=== PATIENT | male | born 1965 | race Caucasian/White ===

== ENCOUNTER 2017-01-27 19:07 | Observation (INO) | payer OTHER ==
[~2017-01-27] VITALS: Ht 190.5 cm; Wt 114.9 kg
[~2017-01-27 19:07] MED LIST: BACTRIM,SEPT1 TABLET PO; BENADRYL25 MG PO; CLEOCIN300 MG PO; DELTASONE20 M1 PO; DICLOFENAC SODI75 MG PO; DOXYCYCLINE HY100 M1 PO; FLAGYL500 MG PO; GABAPENTIN600 MG PO; HYCODAN SYRUP480 ML PO; INDOCIN25 MG PO; LIPITOR40 MG PO; METHADONE10 MG PO; MOBIC15 MG PO; NEXIUM40 MG PO; NOHOMEMEDS; OXYCODONE HCL10 MG PO; PERCOCET 10/1 TABLET PO; PERCOCET 7.5-31 EACH PO; PERCOCET 7.51 TABLET PO; PREDNISONE20 MG PO; PRILOSEC OTC20 MG PO; PRILOSEC40 MG PO; SOLARCAINE ALO TP; TRAMADOL HCL50 MG PO; VALIUM5 MG PO; VITAMIN D5000 UNI1 PO; VITAMIN D50000 UNI4 PO; VOLTAREN50 MG PO; ZANTAC150 MG PO; ZITHROMAX250 MG PO
[2017-01-27 20:36] LABS: HEMATOCRIT 49.7 % (38.0-50.0); MCH 29.4 PG (29.0-34.0); MCHC 32.4 G/DL (30.0-36.0); MCV 90.7 FL (86-99); MEAN PLAT.VOLUME 10.6 uM^3 (9.0-12.4); PLATELET COUNT 175 K/uL (156-360); RBC DIS.WIDTH-CV 13.5 % (11.8-14.6); RBC DIS.WIDTH-SD 45.4 % (39-53); RED BLOOD COUNT 5.48 M/uL (4.00-5.50)
[2017-01-27 20:51] LABS: CHLORIDE 105 mEq/L (99-109); POTASSIUM 4.9 mEq/L (3.7-5.4); SODIUM 138 mEq/L (136-147)
[2017-01-27 20:53] LABS: GLUCOSE 79 mg/dL (70-99)
[2017-01-27 20:54] LABS: ANION GAP 14 MEQ/L (2-14)
[2017-01-27 20:55] LABS: TOTAL BILIRUBIN 0.6 mg/dL (0.0-1.0)
[2017-01-27 20:57] LABS: ALKALINE PHOSPHATASE 68 IU/L (3-129); GFR ESTIMATE (CALCULATED) 57 mL/min/
[2017-01-27 20:58] LABS: UREA NITROGEN (BUN) 19 mg/dL (9-23)
[2017-01-27 21:00] LABS: LIPASE 22 U/L (1.0-51.0); TROP-I INTERPRETATION NEGATIVE; TROPONIN-I < 0.01 ng/mL (0.0-0.30)
[2017-01-27] MEDS ORDERED: MELOXICAM15 MG PO (22:38)
[2017-01-28 00:52] LABS: BILIRUBIN NEGATIVE; BLOOD NEGATIVE; COLOR YELLOW ((YELLOW)); GLUCOSE (STRIP) NEGATIVE; KETONES NEGATIVE; LEUKOCYTES NEGATIVE; NITRITE NEGATIVE; PROTEIN (STRIP) 30; SPECIFIC GRAVITY 1.019 (1.000-1.030); UROBILINOGEN 0.2 MG/DL (0.2-1.0)
[2017-01-28 00:55] LABS: ADD MIUA? NO; UCUL ADDED? NO
[2017-01-28 02:28] VITALS: BP 135/76
[2017-01-28 04:30] LABS: TROP-I INTERPRETATION NEGATIVE; TROPONIN-I < 0.01 ng/mL (0.0-0.30)
[2017-01-28 07:32] VITALS: BP 139/89
[2017-01-28 08:52] LABS: INTERNAL CONTROL VALID? YES
[2017-01-28 09:11] LABS: HEMATOCRIT 45.7 % (38.0-50.0); MCHC 31.9 G/DL (30.0-36.0); MCV 90.9 FL (86-99); MEAN PLAT.VOLUME 10.7 uM^3 (9.0-12.4); PLATELET COUNT 144 K/uL (156-360); RBC DIS.WIDTH-CV 13.3 % (11.8-14.6); RED BLOOD COUNT 5.03 M/uL (4.00-5.50)
[2017-01-28 09:18] LABS: WHITE BLOOD COUNT 8.2 K/uL (4.1-10.2)
[2017-01-28 09:23] LABS: ANION GAP 10 MEQ/L (2-14); CHLORIDE 106 MEQ/L (99-109); GFR ESTIMATE (CALCULATED) > 59 mL/min/; SAMPLE HEMOLYSIS CHECK 0; SAMPLE ICTERIC CHECK 0; SAMPLE LIPEMIA CHECK 0; SODIUM 139 MEQ/L (136-147); UREA NITROGEN (BUN) 15 mg/dL (9-23)
[2017-01-28 09:24] LABS: GLUCOSE 105 mg/dL (70-99)
[2017-01-28 09:35] LABS: TROP-I INTERPRETATION NEGATIVE; TROPONIN-I < 0.01 ng/mL (0.0-0.30)
[2017-01-28 09:47] LABS: CREATINE KINASE 106 IU/L (1-294)
[2017-01-28 15:40] VITALS: BP 121/81
[2017-01-28 19:41] VITALS: BP 113/74
[2017-01-28 23:33] VITALS: BP 159/73
[2017-01-29 03:25] VITALS: BP 127/71
[2017-01-29 07:34] LABS: HEMATOCRIT 42.7 % (38.0-50.0); MCH 30.3 PG (29.0-34.0); MCV 91.6 FL (86-99); PLATELET COUNT 146 K/uL (156-360); RBC DIS.WIDTH-CV 13.5 % (11.8-14.6); RBC DIS.WIDTH-SD 45.6 % (39-53); RED BLOOD COUNT 4.66 M/uL (4.00-5.50); WHITE BLOOD COUNT 5.8 K/uL (4.1-10.2)
[2017-01-29 07:59] LABS: ALKALINE PHOSPHATASE 54 IU/L (3-129); ANION GAP 8 MEQ/L (2-14); CHLORIDE 108 MEQ/L (99-109); GFR ESTIMATE (CALCULATED) > 59 mL/min/; GLUCOSE 155 mg/dL (70-99); SAMPLE HEMOLYSIS CHECK 0; SAMPLE ICTERIC CHECK 0; SAMPLE LIPEMIA CHECK 1; SODIUM 141 MEQ/L (136-147); TOTAL BILIRUBIN 0.3 MG/DL (0.0-1.0); UREA NITROGEN (BUN) 10 mg/dL (9-23)
[2017-01-29 08:43] VITALS: BP 141/95; BP 1471/95
[2017-01-29 10:48] VITALS: BP 144/79
[2017-01-29 13:18] VITALS: BP 147/82
[2017-01-29 15:33] VITALS: BP 135/77
[2017-01-29] MEDS ORDERED: CEFTIN125 MG/5 M PO (16:00)
[2017-01-29] MEDS ORDERED: ZITHROMAX250 MG PO (16:00)
[2017-01-29] MEDS ORDERED: ACIDOPHILUS LA1 EACH PO (16:00)
[2017-01-29] MEDS ORDERED: TRAMADOL HCL50 MG PO (16:00)
[2017-01-29] MEDS ORDERED: PERCOCET 10/1 TABLET PO (16:00)
[2017-01-29] MEDS ORDERED: TIZANIDINE HCL2 MG PO (16:00)
[2017-01-29] MEDS ORDERED: ZITHROMAX500 MG PO (17:41)
[2017-01-29] MEDS ORDERED: CEFTIN500 MG PO (17:41)
== END 2017-01-29 18:08 | disposition home or self-care (01) ==
LOC: EME 19:07 → 5SOUTH 01-28 00:29 → EDOF 01-28 00:29 → 5SOUTH 01-28 02:10
PROVIDERS: Emergency Medicine; Internal Medicine
DX: J44.0 Chronic obstructive pulmonary disease with (acute) lower respiratory infection (principal); N17.9 Acute kidney failure, unspecified; J18.9 Pneumonia, unspecified organism; I70.213 Atherosclerosis of native arteries of extremities with intermittent claudication, bilateral legs; M62.830 Muscle spasm of back; E87.2 Acidosis; R07.81 Pleurodynia; K76.0 Fatty (change of) liver, not elsewhere classified; I10 Essential (primary) hypertension; G89.29 Other chronic pain; M51.16 Intervertebral disc disorders with radiculopathy, lumbar region; E66.9 Obesity, unspecified; F11.21 Opioid dependence, in remission; M19.90 Unspecified osteoarthritis, unspecified site; Z68.31 Body mass index [BMI] 31.0-31.9, adult; F17.210 Nicotine dependence, cigarettes, uncomplicated; Z86.718 Personal history of other venous thrombosis and embolism
CPT/HCPCS: 71020; 72131; 74176; 78582; 80048; 80053; 81003; 82550; 83605; 83690; 84484; 85027; 87040; 87449; 93005; 93925; 93971; 99281; 99285; A9540; A9567; G0378; J0456; J0696; J1650; J1956; J2270; J2405; J7030; J7050

== ENCOUNTER 2017-07-13 00:24 | Inpatient (IN) | payer OTHER ==
[~2017-07-13] VITALS: Ht 190.5 cm; Wt 101.3 kg
[~2017-07-13 00:24] MED LIST changes: +ACIDOPHILUS LA1 EACH PO; +CEFTIN125 MG/5 M PO; +CEFTIN500 MG PO; +MELOXICAM15 MG PO; +TIZANIDINE HCL2 MG PO; +ZITHROMAX500 MG PO
[2017-07-13 01:52] LABS: BASOPHIL COUNT 0.1 K/uL (0-0.1); EOSINOPHIL (%) 3.8 % (0-5); EOSINOPHIL COUNT 0.3 K/uL (0-0.3); HEMATOCRIT 36.3 % (38.0-50.0); IMMATURE GRANULOCYTE (%) 0.3 % (0.0-0.7); LYMPHOCYTE COUNT 1.8 K/uL (1.0-2.8); MCH 27.8 PG (29.0-34.0); MCHC 30.9 G/DL (30.0-36.0); MCV 90.1 FL (86-99); MONOCYTE (%) 6.7 % (3-12); MONOCYTE COUNT 0.6 K/uL (0-0.8); NEUTROPHIL (%) 67.8 % (45-76); RBC DIS.WIDTH-CV 13.9 % (11.8-14.6); RED BLOOD COUNT 4.03 M/uL (4.00-5.50); WHITE BLOOD COUNT 8.9 K/uL (4.1-10.2)
[2017-07-13 01:57] LABS: PROTHROMBIN TIME 11.3 SEC (10.2-12.9)
[2017-07-13 02:05] LABS: CHLORIDE 105 mEq/L (99-109); POTASSIUM 3.9 mEq/L (3.7-5.4); SODIUM 142 mEq/L (136-147)
[2017-07-13 02:07] LABS: GLUCOSE 99 mg/dL (70-99)
[2017-07-13 02:08] LABS: ANION GAP 12 MEQ/L (2-14)
[2017-07-13 02:10] LABS: PTT 20.4 SEC (25-37)
[2017-07-13 02:11] LABS: GFR ESTIMATE (CALCULATED) > 59 mL/min/
[2017-07-13 02:12] LABS: UREA NITROGEN (BUN) 19 mg/dL (9-23)
[2017-07-13 02:48] LABS: MEAN PLAT.VOLUME 10.6 uM^3 (9.0-12.4); PLAT.SUFFICIENCY ADEQUATE; PLATELET COUNT 192 K/uL (156-360)
[2017-07-13 06:03] VITALS: BP 139/83
[2017-07-13 11:39] VITALS: BP 151/80
[2017-07-13] MEDS ORDERED: SERTRALINE HCL100 MG PO (13:13)
[2017-07-13] MEDS ORDERED: VISINE A.C300 DROP/1 BOTH EYES (13:16)
[2017-07-13] MEDS ORDERED: CEFUROXIME500 MG PO (13:28)
[2017-07-13 15:19] VITALS: BP 138/75
[2017-07-13 17:28] LABS: METH RESISTANT S AUREUS PCR POSITIVE (NEGATIVE)
[2017-07-13 17:41] LABS: PROBE CHECK PASS
[2017-07-13 19:30] VITALS: BP 165/90
[2017-07-14 00:05] VITALS: BP 162/92
[2017-07-14 04:17] VITALS: BP 164/86
[2017-07-14 07:09] LABS: BASOPHIL COUNT 0.1 K/uL (0-0.1); EOSINOPHIL (%) 4.2 % (0-5); EOSINOPHIL COUNT 0.3 K/uL (0-0.3); HEMATOCRIT 36.7 % (38.0-50.0); IMMATURE GRANULOCYTE (%) 0.3 % (0.0-0.7); INSTRUMENT ABS NEUTROPHIL CT 4.4 K/uL; LYMPHOCYTE COUNT 1.6 K/uL (1.0-2.8); MCH 28.2 PG (29.0-34.0); MCHC 31.1 G/DL (30.0-36.0); MCV 90.8 FL (86-99); MEAN PLAT.VOLUME 10.2 uM^3 (9.0-12.4); MONOCYTE (%) 6.6 % (3-12); MONOCYTE COUNT 0.5 K/uL (0-0.8); NEUTROPHIL (%) 64.2 % (45-76); NEUTROPHIL COUNT 4.4 K/uL (1.8-6.4); PLATELET COUNT 186 K/uL (156-360); RBC DIS.WIDTH-CV 14.2 % (11.8-14.6); RBC DIS.WIDTH-SD 46.8 % (39-53); RED BLOOD COUNT 4.04 M/uL (4.00-5.50); WHITE BLOOD COUNT 6.8 K/uL (4.1-10.2)
[2017-07-14 07:39] LABS: ANION GAP 8 MEQ/L (2-14); CHLORIDE 107 MEQ/L (99-109); GFR ESTIMATE (CALCULATED) > 59 mL/min/; GLUCOSE 100 mg/dL (70-99); POTASSIUM 4.4 MEQ/L (3.7-5.4); SAMPLE HEMOLYSIS CHECK 0; SAMPLE ICTERIC CHECK 0; SAMPLE LIPEMIA CHECK 0; SODIUM 139 MEQ/L (136-147); UREA NITROGEN (BUN) 16 mg/dL (9-23)
[2017-07-14 07:57] VITALS: BP 163/97
[2017-07-14 10:55] LABS: HBSG INDEX 0.24
[2017-07-14 10:57] LABS: HIV INDEX 0.18; HIV-1/2 AB/AG COMBO Nonreactive
[2017-07-14 11:00] LABS: HPCA INDEX 13.59
== END 2017-07-14 10:35 | disposition left against medical advice (07) | DRG 603 ==
LOC: EME 00:24 → EDOF 03:57 → ENRESERV 03:59 → 3EAST 05:50
PROVIDERS: Emergency Medicine; Hospitalist
DX: L02.416 Cutaneous abscess of left lower limb (principal); L03.116 Cellulitis of left lower limb; F11.90 Opioid use, unspecified, uncomplicated; G89.29 Other chronic pain; M54.9 Dorsalgia, unspecified; I82.511 Chronic embolism and thrombosis of right femoral vein; F17.200 Nicotine dependence, unspecified, uncomplicated; Z22.322 Carrier or suspected carrier of Methicillin resistant Staphylococcus aureus; Z86.14 Personal history of Methicillin resistant Staphylococcus aureus infection; Z91.041 Radiographic dye allergy status
CPT/HCPCS: 73700; 80048; 83605; 85025; 85610; 85730; 86703; 86803; 87040; 87070; 87075; 87205; 87340; 87641; 90686; 93970; 99281; 99285; J0295; J1650; J2543; J3010; J3370; J7050

== ENCOUNTER 2017-11-07 22:48 | Emergency (ER) | payer OTHER ==
[~2017-11-07] VITALS: Ht 193 cm; Wt 81.1 kg
[~2017-11-07 22:48] MED LIST changes: +CEFUROXIME500 MG PO; +SERTRALINE HCL100 MG PO; +VISINE A.C300 DROP/1 BOTH EYES
[2017-11-08 02:48] VITALS: BP 108/79
== END 2017-11-08 02:48 | disposition home or self-care (01) ==
LOC: EME 22:48
DX: S60.221A Contusion of right hand, initial encounter (principal); Y04.2XXA Assault by strike against or bumped into by another person, initial encounter; G89.29 Other chronic pain; I10 Essential (primary) hypertension; E78.5 Hyperlipidemia, unspecified; J44.9 Chronic obstructive pulmonary disease, unspecified; K21.9 Gastro-esophageal reflux disease without esophagitis; B19.20 Unspecified viral hepatitis C without hepatic coma; F32.9 Major depressive disorder, single episode, unspecified; F17.200 Nicotine dependence, unspecified, uncomplicated; Z87.442 Personal history of urinary calculi; Z91.041 Radiographic dye allergy status
CPT/HCPCS: 70450; 73130; 99281; 99283

== ENCOUNTER 2017-11-08 14:58 | Emergency (ER) | payer OTHER ==
[~2017-11-08] VITALS: Ht 182.9 cm; Wt 88.4 kg
[2017-11-08 15:41] LABS: HEMATOCRIT 49.2 % (38.0-50.0); HEMOGLOBIN 16.2 G/DL (12.5-16.6); MCH 27.9 PG (29.0-34.0); MCHC 32.9 G/DL (30.0-36.0); MCV 84.8 FL (86-99); PLATELET COUNT 193 K/uL (156-360); RBC DIS.WIDTH-SD 53.7 % (39-53); WHITE BLOOD COUNT 7.1 K/uL (4.1-10.2)
[2017-11-08 15:49] LABS: CHLORIDE 105 mEq/L (99-109); SODIUM 142 mEq/L (136-147)
[2017-11-08 15:51] LABS: GLUCOSE 85 mg/dL (70-99); TOTAL PROTEIN 7.7 g/dL (6.4-8.3)
[2017-11-08 15:53] LABS: TOTAL BILIRUBIN 0.6 mg/dL (0.0-1.0)
[2017-11-08 15:54] LABS: SERUM ETHYL ALCOHOL 97 mg/dL
[2017-11-08 15:55] LABS: CREATININE 0.8 mg/dL (0.6-1.3); GFR ESTIMATE (CALCULATED) > 59 mL/min/ (58.99-99999)
[2017-11-08 15:56] LABS: ALKALINE PHOSPHATASE 99 IU/L (3-129); AST (GOT) 52 IU/L (2-34)
[2017-11-08 15:57] LABS: UREA NITROGEN (BUN) 16 mg/dL (9-23)
[2017-11-08 15:58] LABS: SALICYLATE < 5.0 MG/DL (15-30)
[2017-11-08 15:59] LABS: ACETAMINOPHEN (TYLENOL) < 10 mcg/mL (10-30); ALT (GPT) 56 IU/L (3-49); LIPASE 25 U/L (1.0-51.0)
[2017-11-08 18:44] LABS: AMPHETAMINE NEGATIVE (500 ng/mL); BARBITURATES NEGATIVE (200 ng/mL); BENZODIAZEPINES NEGATIVE (150 ng/mL); BUPRENORPHINE NEGATIVE (10 ng/mL); COCAINE PRESUMPTIVE POSITIVE (150 ng/mL); METHADONE NEGATIVE (200 ng/mL); METHAMPHETAMINE NEGATIVE (500 ng/mL); OPIATES (MORPHINE) NEGATIVE (100 ng/mL); OXYCODONE NEGATIVE (100 ng/mL); PHENCYCLIDINE NEGATIVE (25 ng/mL); PROPOXYPHENE NEGATIVE (300 ng/mL); THC CANNABINOIDS NEGATIVE (50 ng/mL); TRICYCLIC ANTIDEPRESSANTS NEGATIVE (300 ng/mL)
[2017-11-08 18:53] VITALS: BP 139/85
[2017-11-08 21:24] LABS: INTER. NORMALIZED RATIO 0.9
[2017-11-08 21:26] LABS: PTT 32.1 SEC (25-37)
== END 2017-11-08 18:57 | disposition home or self-care (01) ==
LOC: EME 14:58
PROVIDERS: Emergency Medicine
DX: S00.83XA Contusion of other part of head, initial encounter (principal); S02.2XXA Fracture of nasal bones, initial encounter for closed fracture; R10.9 Unspecified abdominal pain; M79.89 Other specified soft tissue disorders; Y09 Assault by unspecified means; F10.99 Alcohol use, unspecified with unspecified alcohol-induced disorder; Y90.4 Blood alcohol level of 80-99 mg/100 ml; M19.031 Primary osteoarthritis, right wrist; J32.0 Chronic maxillary sinusitis; Z91.041 Radiographic dye allergy status; Z87.442 Personal history of urinary calculi; F17.200 Nicotine dependence, unspecified, uncomplicated
CPT/HCPCS: 70450; 70486; 72125; 73130; 74176; 80053; 83690; 84999; 85027; 85610; 85730; 99281; 99285; G0480

== ENCOUNTER 2017-11-18 03:18 | Emergency (ER) | payer OTHER ==
[~2017-11-18] VITALS: Ht 193 cm; Wt 87.3 kg
[2017-11-18 03:18] VITALS: BP 114/73
[2017-11-18 04:47] LABS: HEMATOCRIT 44.9 % (38.0-50.0); HEMOGLOBIN 14.7 G/DL (12.5-16.6); MCH 28.7 PG (29.0-34.0); MCHC 32.7 G/DL (30.0-36.0); MCV 87.5 FL (86-99); PLATELET COUNT 167 K/uL (156-360); RBC DIS.WIDTH-CV 17.2 % (11.8-14.6); RBC DIS.WIDTH-SD 55.7 % (39-53); RED BLOOD COUNT 5.13 M/uL (4.00-5.50); WHITE BLOOD COUNT 5.6 K/uL (4.1-10.2)
[2017-11-18 04:50] LABS: ALBUMIN 4.3 g/dL (3.2-4.8); CHLORIDE 107 mEq/L (99-109); SODIUM 144 mEq/L (136-147)
[2017-11-18 04:52] LABS: GLUCOSE 73 mg/dL (70-99); TOTAL PROTEIN 7.9 g/dL (6.4-8.3)
[2017-11-18 04:54] LABS: TOTAL BILIRUBIN 0.6 mg/dL (0.0-1.0)
[2017-11-18 04:56] LABS: ALKALINE PHOSPHATASE 101 IU/L (3-129); CREATININE 0.9 mg/dL (0.6-1.3); GFR ESTIMATE (CALCULATED) > 59 mL/min/ (58.99-99999)
[2017-11-18 04:57] LABS: UREA NITROGEN (BUN) 16 mg/dL (9-23)
[2017-11-18 04:58] LABS: AST (GOT) 50 IU/L (2-34)
[2017-11-18 04:59] LABS: ALT (GPT) 42 IU/L (3-49)
== END 2017-11-18 05:00 | disposition left against medical advice (07) ==
LOC: EME 03:18
DX: Z04.8 Encounter for examination and observation for other specified reasons (principal); Z53.21 Procedure and treatment not carried out due to patient leaving prior to being seen by health care provider
CPT/HCPCS: 80053; 81003; 85027

== ENCOUNTER 2017-11-24 17:40 | Emergency (ER) | payer OTHER ==
[~2017-11-24] VITALS: Ht 190.5 cm; Wt 85.1 kg
[2017-11-24 18:16] LABS: HEMATOCRIT 47.5 % (38.0-50.0); HEMOGLOBIN 15.6 G/DL (12.5-16.6); MCH 28.6 PG (29.0-34.0); MCHC 32.8 G/DL (30.0-36.0); MCV 87.2 FL (86-99); RBC DIS.WIDTH-CV 17.3 % (11.8-14.6); RBC DIS.WIDTH-SD 55.2 % (39-53); RED BLOOD COUNT 5.45 M/uL (4.00-5.50); WHITE BLOOD COUNT 6.1 K/uL (4.1-10.2)
[2017-11-24 18:17] LABS: PLATELET COUNT 233 K/uL (156-360)
[2017-11-24 18:31] LABS: ALBUMIN 4.2 g/dL (3.2-4.8); CHLORIDE 105 mEq/L (99-109); POTASSIUM 3.6 mEq/L (3.7-5.4); SODIUM 142 mEq/L (136-147)
[2017-11-24 18:34] LABS: GLUCOSE 96 mg/dL (70-99); TOTAL PROTEIN 8.1 g/dL (6.4-8.3)
[2017-11-24 18:36] LABS: SERUM ETHYL ALCOHOL 258 mg/dL; TOTAL BILIRUBIN 0.4 mg/dL (0.0-1.0)
[2017-11-24 18:37] LABS: ALKALINE PHOSPHATASE 93 IU/L (3-129); CREATININE 0.9 mg/dL (0.6-1.3); GFR ESTIMATE (CALCULATED) > 59 mL/min/ (58.99-99999)
[2017-11-24 18:38] LABS: UREA NITROGEN (BUN) 11 mg/dL (9-23)
[2017-11-24 18:39] LABS: AST (GOT) 38 IU/L (2-34)
[2017-11-24 18:40] LABS: ALT (GPT) 35 IU/L (3-49)
[2017-11-25 01:48] VITALS: BP 129/72
== END 2017-11-25 01:59 | disposition home or self-care (01) ==
LOC: EME 17:40
PROVIDERS: Emergency Medicine
DX: F10.14 Alcohol abuse with alcohol-induced mood disorder (principal); Y90.8 Blood alcohol level of 240 mg/100 ml or more; F32.9 Major depressive disorder, single episode, unspecified; R45.851 Suicidal ideations; E78.5 Hyperlipidemia, unspecified; I10 Essential (primary) hypertension; Z87.442 Personal history of urinary calculi; G43.909 Migraine, unspecified, not intractable, without status migrainosus; K21.9 Gastro-esophageal reflux disease without esophagitis; Z86.718 Personal history of other venous thrombosis and embolism; Z91.041 Radiographic dye allergy status; F17.200 Nicotine dependence, unspecified, uncomplicated; J44.9 Chronic obstructive pulmonary disease, unspecified; B19.20 Unspecified viral hepatitis C without hepatic coma
CPT/HCPCS: 80053; 85027; 90837; 99281; 99285; G0480; J1630; J2060

== ENCOUNTER 2017-11-26 12:54 | Emergency (ER) | payer OTHER ==
[~2017-11-26] VITALS: Ht 193 cm; Wt 92.7 kg
[2017-11-26 14:42] LABS: HEMATOCRIT 43.4 % (38.0-50.0); HEMOGLOBIN 14.3 G/DL (12.5-16.6); MCH 28.7 PG (29.0-34.0); MCHC 32.9 G/DL (30.0-36.0); PLATELET COUNT 194 K/uL (156-360); RBC DIS.WIDTH-CV 17.2 % (11.8-14.6); RBC DIS.WIDTH-SD 55.2 % (39-53); RED BLOOD COUNT 4.99 M/uL (4.00-5.50)
[2017-11-26 14:54] LABS: ALBUMIN 3.8 g/dL (3.2-4.8); CHLORIDE 110 mEq/L (99-109); POTASSIUM 3.9 mEq/L (3.7-5.4); SODIUM 143 mEq/L (136-147)
[2017-11-26 14:57] LABS: GLUCOSE 70 mg/dL (70-99); TOTAL PROTEIN 7.3 g/dL (6.4-8.3)
[2017-11-26 14:58] LABS: TOTAL BILIRUBIN 0.4 mg/dL (0.0-1.0)
[2017-11-26 14:59] LABS: SERUM ETHYL ALCOHOL 176 mg/dL
[2017-11-26 15:00] LABS: ALKALINE PHOSPHATASE 86 IU/L (3-129); CREATININE 0.8 mg/dL (0.6-1.3); GFR ESTIMATE (CALCULATED) > 59 mL/min/ (58.99-99999)
[2017-11-26 15:01] LABS: UREA NITROGEN (BUN) 14 mg/dL (9-23)
[2017-11-26 15:02] LABS: AST (GOT) 47 IU/L (2-34)
[2017-11-26 15:03] LABS: ALT (GPT) 34 IU/L (3-49)
[2017-11-26 18:29] VITALS: BP 130/66
[2017-11-27] MEDS ORDERED: ZANAFLEX4 M1 PO (08:18)
[2017-11-27] MEDS ORDERED: FISH OIL 1,0001 EAC7 PO (08:19)
[2017-11-27] MEDS ORDERED: VITAMIN E100 UNIT PO (08:19)
[2017-11-27] MEDS ORDERED: ASCORBIC ACID100 MG PO (08:19)
== END 2017-11-26 18:50 | disposition home or self-care (01) ==
LOC: EME 12:54
PROVIDERS: Emergency Medicine
DX: F32.9 Major depressive disorder, single episode, unspecified (principal); F10.129 Alcohol abuse with intoxication, unspecified; Y90.6 Blood alcohol level of 120-199 mg/100 ml; R45.851 Suicidal ideations; S60.511A Abrasion of right hand, initial encounter; W25.XXXA Contact with sharp glass, initial encounter; F43.21 Adjustment disorder with depressed mood; J44.9 Chronic obstructive pulmonary disease, unspecified; I10 Essential (primary) hypertension; E78.5 Hyperlipidemia, unspecified; K21.9 Gastro-esophageal reflux disease without esophagitis; B19.20 Unspecified viral hepatitis C without hepatic coma; Z87.442 Personal history of urinary calculi; F17.200 Nicotine dependence, unspecified, uncomplicated; Z86.718 Personal history of other venous thrombosis and embolism; Z91.041 Radiographic dye allergy status
CPT/HCPCS: 73130; 80053; 81003; 85027; 90837; 99281; 99285; G0480

== ENCOUNTER 2017-11-27 00:30 | Inpatient (IN) | payer OTHER ==
[~2017-11-27] VITALS: Ht 190.5 cm; Wt 83.3 kg
[2017-11-27 01:37] LABS: HEMATOCRIT 44.8 % (38.0-50.0); HEMOGLOBIN 14.8 G/DL (12.5-16.6); MCH 28.8 PG (29.0-34.0); MCV 87.2 FL (86-99); PLATELET COUNT 204 K/uL (156-360); RBC DIS.WIDTH-CV 17.1 % (11.8-14.6); RBC DIS.WIDTH-SD 55.2 % (39-53); RED BLOOD COUNT 5.14 M/uL (4.00-5.50); WHITE BLOOD COUNT 5.8 K/uL (4.1-10.2)
[2017-11-27 02:01] LABS: ALBUMIN 3.9 G/DL (3.2-4.8); ALKALINE PHOSPHATASE 75 IU/L (3-129); ALT (GPT) 30 IU/L (3-49); AST (GOT) 40 IU/L (2-34); CHLORIDE 106 MEQ/L (99-109); CREATINE KINASE 366 IU/L (1-294); CREATININE 0.9 MG/DL (0.6-1.3); GFR ESTIMATE (CALCULATED) > 59 mL/min/ (58.99-99999); POTASSIUM 3.5 MEQ/L (3.7-5.4); SODIUM 142 MEQ/L (136-147); TOTAL BILIRUBIN 0.4 MG/DL (0.0-1.0); TOTAL CK 366 IU/L (1-294); TOTAL PROTEIN 7.2 G/DL (6.4-8.3); UREA NITROGEN (BUN) 18 mg/dL (9-23)
[2017-11-27 02:03] LABS: GLUCOSE 98 mg/dL (70-99)
[2017-11-27 02:11] LABS: TROP-I INTERPRETATION NEGATIVE; TROPONIN-I < 0.01 ng/mL (0.0-0.30)
[2017-11-27 02:16] LABS: LIPASE 49 U/L (1.0-51.0); SERUM ETHYL ALCOHOL 119 mg/dL
[2017-11-27 02:41] LABS: CKMB RELATIVE INDEX 3.1 (0.0-3.9)
[2017-11-27 02:56] LABS: PTT 32.1 SEC (25-37)
[2017-11-27 02:59] LABS: CK-MB 11.4 ng/mL (0.0-4.9)
[2017-11-27] MEDS ORDERED: ZANAFLEX4 M1 PO (08:18)
[2017-11-27] MEDS ORDERED: FISH OIL 1,0001 EAC7 PO (08:19)
[2017-11-27] MEDS ORDERED: ASCORBIC ACID100 MG PO (08:19)
[2017-11-27] MEDS ORDERED: VITAMIN E100 UNIT PO (08:19)
[2017-11-27 09:24] VITALS: BP 133/86
[2017-11-27 09:29] LABS: FASTING STATUS FASTING
[2017-11-27 09:58] LABS: HDL CHOLESTEROL 65 MG/DL (Desirable>=40); LDL CHOLESTEROL 54 mg/dL (Desirable<100); NON-HDL CHOLESTEROL 81 mg/dL (Desirable<160); TOTAL CHOLESTEROL 146 mg/dL (Desirable<200); TRIGLYCERIDES 134 MG/DL (Normal: <150)
[2017-11-27 13:01] LABS: HEMOGLOBIN A1c (GLYCOHEMOGLOB) 5.2 % (Below 5.7)
[2017-11-28] MEDS ORDERED: CLINDAMYCIN HC150 MG PO (03:34)
== END 2017-11-28 04:19 | disposition left against medical advice (07) | DRG 313 ==
LOC: EME → EDBD 00:30 → EME 00:30 → EDOF 05:21 → ENRESERV 05:24 → 5SOUTH 08:28 → EDOF 08:30 → CANRESERV 08:30 → ENRESERV 08:30 → EDOF 11-28 04:19
PROVIDERS: Emergency Medicine; Hospitalist
DX: R07.89 Other chest pain (principal); L03.113 Cellulitis of right upper limb; L03.114 Cellulitis of left upper limb; F14.10 Cocaine abuse, uncomplicated; F10.120 Alcohol abuse with intoxication, uncomplicated; Y90.5 Blood alcohol level of 100-119 mg/100 ml; Z86.14 Personal history of Methicillin resistant Staphylococcus aureus infection; Z91.14 Patient's other noncompliance with medication regimen; E78.5 Hyperlipidemia, unspecified; F17.210 Nicotine dependence, cigarettes, uncomplicated; K21.9 Gastro-esophageal reflux disease without esophagitis; I10 Essential (primary) hypertension; I82.511 Chronic embolism and thrombosis of right femoral vein
CPT/HCPCS: 70450; 71046; 73130; 74176; 80053; 80061; 81003; 82550; 82553; 83036; 83605; 83690; 83880; 84484; 85027; 85610; 85730; 87040; 93005; 93970; 99281; 99285; G0480; J2270; J3010; J3370

== ENCOUNTER 2017-11-28 00:41 | Emergency (ER) | payer OTHER ==
[~2017-11-28] VITALS: Ht 190.5 cm; Wt 86.1 kg
[~2017-11-28 00:41] MED LIST changes: +ASCORBIC ACID100 MG PO; +FISH OIL 1,0001 EAC7 PO; +VITAMIN E100 UNIT PO; +ZANAFLEX4 M1 PO
[2017-11-28 01:43] LABS: HEMATOCRIT 47.1 % (38.0-50.0); HEMOGLOBIN 15.6 G/DL (12.5-16.6); MCH 28.4 PG (29.0-34.0); MCHC 33.1 G/DL (30.0-36.0); MCV 85.8 FL (86-99); PLATELET COUNT 235 K/uL (156-360); RBC DIS.WIDTH-CV 16.5 % (11.8-14.6); RED BLOOD COUNT 5.49 M/uL (4.00-5.50); WHITE BLOOD COUNT 6.6 K/uL (4.1-10.2)
[2017-11-28 01:57] LABS: CHLORIDE 106 mEq/L (99-109); POTASSIUM 3.9 mEq/L (3.7-5.4); SODIUM 140 mEq/L (136-147)
[2017-11-28 01:59] LABS: GLUCOSE 96 mg/dL (70-99)
[2017-11-28 02:03] LABS: CREATININE 0.9 mg/dL (0.6-1.3); GFR ESTIMATE (CALCULATED) > 59 mL/min/ (58.99-99999)
[2017-11-28 02:04] LABS: TROP-I INTERPRETATION NEGATIVE; TROPONIN-I < 0.01 ng/mL (0.0-0.30); UREA NITROGEN (BUN) 14 mg/dL (9-23)
[2017-11-28] MEDS ORDERED: CLINDAMYCIN HC150 MG PO (03:34)
[2017-11-28 04:19] VITALS: BP 139/83
== END 2017-11-28 04:35 | disposition home or self-care (01) ==
LOC: EME 00:41
DX: R07.9 Chest pain, unspecified (principal); L03.116 Cellulitis of left lower limb; L03.115 Cellulitis of right lower limb; L03.114 Cellulitis of left upper limb; L03.113 Cellulitis of right upper limb; Z86.718 Personal history of other venous thrombosis and embolism; Z87.442 Personal history of urinary calculi; F17.200 Nicotine dependence, unspecified, uncomplicated
CPT/HCPCS: 71046; 80048; 84484; 85027; 93005; 99281; 99284

== ENCOUNTER 2017-11-29 11:47 | Emergency (ER) | payer OTHER ==
[~2017-11-29 11:47] MED LIST changes: +CLINDAMYCIN HC150 MG PO
== END 2017-11-29 12:00 | disposition left against medical advice (07) ==
LOC: EME 11:47
DX: R07.9 Chest pain, unspecified (principal); Z53.21 Procedure and treatment not carried out due to patient leaving prior to being seen by health care provider
CPT/HCPCS: 93005

== ENCOUNTER 2017-12-20 17:07 | Emergency (ER) | payer OTHER ==
[~2017-12-20] VITALS: Ht 190.5 cm; Wt 89.7 kg
[2017-12-20 18:47] LABS: HEMOGLOBIN 14.7 G/DL (12.5-16.6); MCH 29.7 PG (29.0-34.0); MCHC 33.4 G/DL (30.0-36.0); MCV 88.9 FL (86-99); PLATELET COUNT 179 K/uL (156-360); RBC DIS.WIDTH-CV 15.2 % (11.8-14.6); RBC DIS.WIDTH-SD 50.2 % (39-53); RED BLOOD COUNT 4.95 M/uL (4.00-5.50); WHITE BLOOD COUNT 7.9 K/uL (4.1-10.2)
[2017-12-20 18:54] LABS: ALBUMIN 3.7 g/dL (3.2-4.8); CHLORIDE 107 mEq/L (99-109); POTASSIUM 3.9 mEq/L (3.7-5.4); SODIUM 141 mEq/L (136-147)
[2017-12-20 18:57] LABS: GLUCOSE 122 mg/dL (70-99)
[2017-12-20 18:59] LABS: TOTAL BILIRUBIN 0.3 mg/dL (0.0-1.0)
[2017-12-20 19:00] LABS: ALKALINE PHOSPHATASE 71 IU/L (3-129); SERUM ETHYL ALCOHOL < 10 mg/dL
[2017-12-20 19:01] LABS: CREATININE 0.8 mg/dL (0.6-1.3); GFR ESTIMATE (CALCULATED) > 59 mL/min/ (58.99-99999)
[2017-12-20 19:02] LABS: AST (GOT) 25 IU/L (2-34); UREA NITROGEN (BUN) 16 mg/dL (9-23)
[2017-12-20 19:03] LABS: ALT (GPT) 22 IU/L (3-49); TROP-I INTERPRETATION NEGATIVE; TROPONIN-I < 0.01 ng/mL (0.0-0.30)
[2017-12-20 19:04] LABS: LIPASE 20 U/L (1.0-51.0)
[2017-12-20] MEDS ORDERED: TESSALON200 MG PO (19:58)
[2017-12-20] MEDS ORDERED: ZITHROMAX Z-PA250 MG PO (19:58)
[2017-12-20 20:34] LABS: APPEARANCE CLEAR ((CLEAR)); BILIRUBIN SMALL; BLOOD NEGATIVE; COLOR YELLOW ((YELLOW)); GLUCOSE (STRIP) NEGATIVE; KETONES 5; LEUKOCYTES NEGATIVE; NITRITE NEGATIVE; PROTEIN (STRIP) 30; SPECIFIC GRAVITY 1.036 (1.000-1.030); UCUL ADDED? NO
[2017-12-20 20:46] LABS: AMPHETAMINE NEGATIVE (500 ng/mL); BENZODIAZEPINES PRESUMPTIVE POSITIVE (150 ng/mL); COCAINE NEGATIVE (150 ng/mL); METHAMPHETAMINE NEGATIVE (500 ng/mL); OPIATES (MORPHINE) PRESUMPTIVE POSITIVE (100 ng/mL); PHENCYCLIDINE NEGATIVE (25 ng/mL); THC CANNABINOIDS NEGATIVE (50 ng/mL); TRICYCLIC ANTIDEPRESSANTS NEGATIVE (300 ng/mL)
[2017-12-20] MEDS ORDERED: GABAPENTIN600 MG PO (20:46)
[2017-12-20 20:47] LABS: BARBITURATES NEGATIVE (200 ng/mL); BUPRENORPHINE NEGATIVE (10 ng/mL); METHADONE PRESUMPTIVE POSITIVE (200 ng/mL); OXYCODONE PRESUMPTIVE POSITIVE (100 ng/mL); PROPOXYPHENE NEGATIVE (300 ng/mL)
[2017-12-20 20:59] VITALS: BP 150/85
[2017-12-21 03:26] LABS: BENZODIAZEPINES, URINE SCREEN POSITIVE (200 ng/mL)
== END 2017-12-20 21:01 | disposition home or self-care (01) ==
LOC: EME 17:07
PROVIDERS: Nurse Practitioner Family
DX: J18.9 Pneumonia, unspecified organism (principal); J44.0 Chronic obstructive pulmonary disease with (acute) lower respiratory infection; G89.29 Other chronic pain; R07.9 Chest pain, unspecified; E78.5 Hyperlipidemia, unspecified; I10 Essential (primary) hypertension; B19.20 Unspecified viral hepatitis C without hepatic coma; K21.9 Gastro-esophageal reflux disease without esophagitis; F17.200 Nicotine dependence, unspecified, uncomplicated; Z87.442 Personal history of urinary calculi; F32.9 Major depressive disorder, single episode, unspecified
CPT/HCPCS: 71046; 80053; 81003; 83690; 84484; 84999; 85027; 93005; 94640; 99281; 99285; G0480; J1885

== ENCOUNTER 2017-12-24 01:02 | Emergency (ER) | payer OTHER ==
[~2017-12-24] VITALS: Ht 190.5 cm; Wt 90.6 kg
[~2017-12-24 01:02] MED LIST changes: +TESSALON200 MG PO; +ZITHROMAX Z-PA250 MG PO
[2017-12-24 05:30] LABS: HEMATOCRIT 44.4 % (38.0-50.0); HEMOGLOBIN 14.5 G/DL (12.5-16.6); MCH 29.2 PG (29.0-34.0); MCHC 32.7 G/DL (30.0-36.0); MCV 89.3 FL (86-99); PLATELET COUNT 177 K/uL (156-360); RBC DIS.WIDTH-SD 49.4 % (39-53); RED BLOOD COUNT 4.97 M/uL (4.00-5.50); WHITE BLOOD COUNT 9.8 K/uL (4.1-10.2)
[2017-12-24 05:43] LABS: CHLORIDE 104 mEq/L (99-109); SODIUM 142 mEq/L (136-147)
[2017-12-24 05:45] LABS: GLUCOSE 96 mg/dL (70-99)
[2017-12-24 05:48] LABS: POTASSIUM 4.8 mEq/L (3.7-5.4); SERUM ETHYL ALCOHOL 33 mg/dL
[2017-12-24 05:49] LABS: CREATININE 0.9 mg/dL (0.6-1.3); GFR ESTIMATE (CALCULATED) > 59 mL/min/ (58.99-99999)
[2017-12-24 05:50] LABS: UREA NITROGEN (BUN) 16 mg/dL (9-23)
[2017-12-24 05:52] LABS: ACETAMINOPHEN (TYLENOL) < 10 mcg/mL (10-30); SALICYLATE < 5.0 MG/DL (15-30)
[2017-12-24 07:41] VITALS: BP 115/74
== END 2017-12-24 08:12 | disposition home or self-care (01) ==
LOC: EME 01:02
PROVIDERS: Emergency Medicine
DX: F32.9 Major depressive disorder, single episode, unspecified (principal); F41.9 Anxiety disorder, unspecified; M79.606 Pain in leg, unspecified; R45.850 Homicidal ideations; J44.9 Chronic obstructive pulmonary disease, unspecified; I10 Essential (primary) hypertension; E78.5 Hyperlipidemia, unspecified; K21.9 Gastro-esophageal reflux disease without esophagitis; B19.20 Unspecified viral hepatitis C without hepatic coma; F17.200 Nicotine dependence, unspecified, uncomplicated; Z71.6 Tobacco abuse counseling; Z87.442 Personal history of urinary calculi; Z91.041 Radiographic dye allergy status
CPT/HCPCS: 71046; 80048; 85027; 93005; 99281; 99285; G0480